=== PATIENT | female | born 1955 | race Hispanic/Latino ===

== ENCOUNTER 2020-07-07 07:17 | Observation (INO) | payer OTHER, MEDICARE ==
[2020-06-29 13:09] LABS: BASOPHILS % (AUTO) 0.3 % (0.0-5.0); EOSINOPHILS % (AUTO) 0.8 % (0.0-8.0); HEMATOCRIT 43.8 % (36-48); LYMPHOCYTES % (AUTO) 36.1 % (21.0-51.0); MEAN CORPUSCULAR HEMOGLOBIN 29.2 pg (27.0-33.0); MEAN CORPUSCULAR HGB CONC 32.9 g/dL (32.0-36.0); MEAN CORPUSCULAR VOLUME 88.8 fL (79-99); MONOCYTES % (AUTO) 4.4 % (3.0-13.0); NEUTROPHILS % (AUTO) 58.3 % (40.0-77.0); PLATELET COUNT (AUTO) 259 K/uL (130-400); RED BLOOD CELL COUNT(AUTO) 4.93 MIL/uL (4.00-5.50); RED CELL DISTRIBUTION WIDTH 11.8 % (11.0-15.5); WHITE BLOOD COUNT (AUTO) 7.8 K/uL (4.8-10.8)
[2020-06-29 13:19] LABS: CREATININE 0.5 mg/dL (0.5-1.5); POTASSIUM 4.3 mmol/L (3.5-5.1)
[2020-06-29 13:22] LABS: INR 0.93 (0.85-1.15); PARTIAL THROMBOPLASTIN TIME 26.6 SEC (26.3-35.5); PROTHROMBIN TIME 10.1 SEC (9.6-11.6)
[2020-07-06 11:56] VITALS: BP 154/78
[2020-07-07] VITALS (22 sets, daily range): BP systolic 105–140; BP diastolic 52–77
[~2020-07-07] VITALS: Ht 160 cm; Wt 71.0 kg
[~2020-07-07 07:17] MED LIST: AMLO-258 PO; ICOS1CAP PO; LISI40TA4 PO; NAPR-1023 PO
[2020-07-07] MEDS ORDERED: CEFAZOLIN SODIUM 1 GM VIAL IVP ONE (08:00)
[2020-07-07] MEDS ORDERED: LACTATED RINGERS 1000ML 1,000 ML IV ONE (08:17)
[2020-07-07] MEDS ORDERED: MV-M1TAB20 PO (08:35)
[2020-07-07] MEDS ORDERED: VITA100014 PO (08:35)
[2020-07-07] MEDS ORDERED: LIDOCAINE PF 2% 5ML ABBOJECT ONE (09:45)
[2020-07-07] MEDS ORDERED: SUCCINYLCHOLINE CHLORIDE 20 MG/ML 10 ML VIAL ONE (09:45)
[2020-07-07] MEDS ORDERED: PROPOFOL 10 MG/ML 20ML VIAL IV ONE (09:46)
[2020-07-07] MEDS ORDERED: DEXAMETHASONE SOD PHOSPHATE 10MG/ML 1ML VIAL ONE (09:46)
[2020-07-07] MEDS ORDERED: MIDAZOLAM HCL 1 MG/ML 2ML VIAL ONE (09:46)
[2020-07-07] MEDS ORDERED: NEOSTIGMINE 5MG/5ML SYR IV ONE (09:46)
[2020-07-07] MEDS ORDERED: GLYCOPYRROLATE 1 MG/5 ML SYRINGE ONE (09:46)
[2020-07-07] MEDS ORDERED: ONDANSETRON HCL 4 MG/2 ML VIAL ONE (09:46)
[2020-07-07] MEDS ORDERED: FENTANYL CITRATE PF 50 MCG/1 ML 2ML VIAL ONE ×3 (09:47→12:16)
[2020-07-07] MEDS ORDERED: ROCURONIUM 10MG/1ML SYR 10 MG/ML ML ONE (09:47)
[2020-07-07] MEDS ORDERED: TRANEXAMIC ACID 1000MG/10ML ONE (10:04)
[2020-07-07] MEDS ORDERED: EPHEDRINE SULFATE 50 MG/ML AMPULE ONE (10:40)
[2020-07-07] MEDS ORDERED: KETOROLAC TROMETHAMINE 30MG/ML ONE (12:18)
[2020-07-07] MEDS: SODIUM CHLORIDE 0.9% 1000ML 1,000 ML IV SCH (12:45)
[2020-07-07] MEDS ORDERED: CALCIUM CARBONATE 500 MG TABLET PO PRN (12:45)
[2020-07-07] MEDS ORDERED: OXYCODONE HCL 5 MG TAB PO PRN (12:45)
[2020-07-07] MEDS ORDERED: KETOROLAC TROMETHAMINE 15MG/ML IV PRN (12:45)
[2020-07-07] MEDS ORDERED: ONDANSETRON HCL 4 MG/2 ML VIAL IVP PRN (12:45)
[2020-07-07] MEDS ORDERED: MORPHINE SULFATE 4 MG/1ML SYG IVP PRN (12:45)
[2020-07-07] MEDS: OXYCODONE HCL 5 MG TAB PO PRN (16:15)
[2020-07-07] MEDS: CEFAZOLIN SODIUM 1 GM VIAL IVP SCH (18:09)
[2020-07-07] MEDS: ACETAMINOPHEN EXTRA STRENGTH 500 MG TABLET PO SCH ×2 (18:10→22:02)
[2020-07-07] MEDS: CELECOXIB 200 MG CAP PO SCH (22:01)
[2020-07-07] MEDS: FAMOTIDINE 20MG TAB 20 MG TAB PO SCH (22:01)
[2020-07-08] MEDS: CEFAZOLIN SODIUM 1 GM VIAL IVP SCH (01:20)
[2020-07-08] MEDS: SODIUM CHLORIDE 0.9% 1000ML 1,000 ML IV SCH (01:20)
[2020-07-08 04:00] VITALS: BP 103/64
[2020-07-08] MEDS: ACETAMINOPHEN EXTRA STRENGTH 500 MG TABLET PO SCH ×2 (04:49→12:07)
[2020-07-08 04:52] LABS: HEMATOCRIT 32.6 % (36-48); MEAN CORPUSCULAR HEMOGLOBIN 29.3 pg (27.0-33.0); MEAN CORPUSCULAR HGB CONC 33.4 g/dL (32.0-36.0); MEAN CORPUSCULAR VOLUME 87.6 fL (79-99); RED BLOOD CELL COUNT(AUTO) 3.72 MIL/uL (4.00-5.50); RED CELL DISTRIBUTION WIDTH 11.7 % (11.0-15.5); WHITE BLOOD COUNT (AUTO) 13.1 K/uL (4.8-10.8)
[2020-07-08 05:05] LABS: CREATININE 0.5 mg/dL (0.5-1.5)
[2020-07-08 08:21] VITALS: BP 122/68
[2020-07-08] MEDS ORDERED: POLYETHYLENE GLYCOL 3350 17 GM POWD.PACK PO SCH (09:00)
[2020-07-08] MEDS ORDERED: AMLODIPINE BESYLATE 5 MG TAB PO SCH (09:00)
[2020-07-08] MEDS ORDERED: LISINOPRIL 40 MG TABLET PO SCH (09:00)
[2020-07-08] MEDS: CELECOXIB 200 MG CAP PO SCH (09:35)
[2020-07-08] MEDS: FAMOTIDINE 20MG TAB 20 MG TAB PO SCH (09:35)
[2020-07-08] MEDS: OXYCODONE HCL 5 MG TAB PO PRN (10:44)
[2020-07-08 11:18] VITALS: BP 123/66
--- NOTE | 2020-07-08 14:35 | NUR ---
ANALY HERNANDEZ SPOKE TO ANALY HERNANDEZ FOR DR. SMITH VIA TELEPHONE AND INFORMED OF PATIENT PROGRESS WITH PHYSICAL THERAPY. Nova ASIF REPLIED THAT SHE WOULD PLACE ORDERS FOR DISCHARGE TODAY.
[2020-07-08 16:35] VITALS: BP 121/77
--- NOTE | 2020-07-08 16:38 | NUR ---
INITIAL: Met w pt and dtr Zandra. Prior to admission pt was living w her spouse. She mentions that her dtr is in town to assist her at tx. Prior to admission pt was using a cane for ambulation. She mentions that Dr. Ayala office had ordered a FWW, which is at home. She mentions that Dr. Jamie yuen had also already arranged therapy and she has her first appointment on Jul 13. Pt at this time voices no further questions or concerns. She feels comfortable to return home w her dtrs assistance. Addendum: 07/08/20 at 1642 by ERMIAS NEVAREZ CM Amended: Links added.
--- NOTE | 2020-07-08 17:45 | NUR ---
DISCHARGE PERFORMED RIGHT KNEE [employer] DRESSING CHANGE. TAUGHT ON BOGD[employer] DRESSING CARE. INFORMED THAT BOGD[employer] DRESSING TO BE REMOVED AT DR. SMITH F/U APPT NEXT WEEK. REMOVED 20F IV FROM RIGHT HAND, CATHETER TIP INTACT. PATIENT CONFIRMS THAT DR. ROME HAS PROVIDED RX FOR ASPIRIN AND TRAMADOL AND ALSO STATE THAT PATIENT HAS DME WALKER AT HOME.
[2020-07-08] MEDS ORDERED: ENALAPRILAT DIHYDRATE 1.25MG/ML 1ML VIAL IV SCH (18:00)
== END 2020-07-08 18:15 | disposition home or self-care (01) ==
LOC: DAH 07:17 → DAHIP 07:18 → 3AH 13:51
PROVIDERS: ADMIT Orthopaedic Surgery; ATTEND Orthopaedic Surgery
DX: M17.11 Unilateral primary osteoarthritis, right knee (principal); Z20.828 Contact with and (suspected) exposure to other viral communicable diseases
CPT/HCPCS: 27447; 36415 ×3; 80048 ×2; 85025; 85027; 85610; 85730; 86850; 86900; 86901; 88304; 88311; 96361 ×2; 96374; 96375; 96376; 97039 ×3; 97116 ×2; 97161; 97530 ×2; A4215; A4221; A4222; A4223; A4649 ×6; A4663; A4930 ×2; A6260; A9272; C1776; C9803; G0378 ×18; G8978; G8979; G8980; G8981; G8982; G8983; J0330; J0690 ×3; J1100; J1885 ×2; J2001; J2250; J2405; J2704; J2710; J3010 ×3; J3490 ×3; J7030; J7120 ×2; U0003

== ENCOUNTER 2021-10-19 13:30 | Emergency (ER) | payer OTHER, MEDICARE ==
[~2021-10-19] VITALS: Ht 157.5 cm; Wt 70.8 kg
[~2021-10-19 13:30] MED LIST changes: -ICOS1CAP PO; -LISI40TA4 PO; +LISI40TA9 PO; +MV-M1TAB20 PO; +VITA100014 PO
[2021-10-19 13:32] VITALS: BP 157/75
[2021-10-19] MEDS ORDERED: ACETAMINOPHEN 500 MG TABLET PO SCH (14:00)
[2021-10-19] MEDS ORDERED: NAPR-1196 PO (15:10)
== END 2021-10-19 15:38 | disposition home or self-care (01) ==
LOC: EDH 13:30
DX: S52.571A Other intraarticular fracture of lower end of right radius, initial encounter for closed fracture (principal); Z79.899 Other long term (current) drug therapy; W18.39XA Other fall on same level, initial encounter; Y93.89 Activity, other specified; Y92.89 Other specified places as the place of occurrence of the external cause; Y99.8 Other external cause status
CPT/HCPCS: 29125; 73110

== ENCOUNTER 2024-08-14 15:20 | Emergency (ER) | payer OTHER, MEDICARE ==
[~2024-08-14] VITALS: Ht 157.5 cm; Wt 71.7 kg
[~2024-08-14 15:20] MED LIST changes: +NAPR-1196 PO
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
[2024-08-14] MEDS ORDERED: CYCL10TA16 PO (15:34)
[2024-08-14] MEDS ORDERED: KETO10TA2 PO (15:34)
[2024-08-14 15:41] VITALS: BP 145/85; PULSE 84; RESP 18; TEMP 98.8; O2SAT 98
== END 2024-08-14 16:12 | disposition home or self-care (01) ==
LOC: EDH 15:20 → EEVIPCON 15:20 → EDH 16:12
DX: S16.1XXA Strain of muscle, fascia and tendon at neck level, initial encounter (principal); I10 Essential (primary) hypertension; Z79.899 Other long term (current) drug therapy; Z98.890 Other specified postprocedural states; V89.2XXA Person injured in unspecified motor-vehicle accident, traffic, initial encounter; Y93.89 Activity, other specified; Y92.488 Other paved roadways as the place of occurrence of the external cause; Y99.8 Other external cause status
CPT/HCPCS: 99283